=== PATIENT | female | born 1945 | race Caucasian/White ===

== ENCOUNTER 2021-09-18 09:09 | Emergency (ER) | payer MEDICARE, BC, OTHER ==
[~2021-09-18] VITALS: Ht 170.2 cm; Wt 70.0 kg
[2021-09-18] MEDS ORDERED: CEPHALEXIN500 MG PO (09:44)
[2021-09-18 10:16] VITALS: BP 138/735
== END 2021-09-18 10:16 | disposition home or self-care (01) ==
LOC: ED 09:09
PROC: 0HQGXZZ Repair Left Hand Skin, External Approach (ICD-10-PCS; principal; 2021-09-18)
DX: S61.211A Laceration without foreign body of left index finger without damage to nail, initial encounter (principal); W26.0XXA Contact with knife, initial encounter; Y93.89 Activity, other specified; Y92.000 Kitchen of unspecified non-institutional (private) residence as the place of occurrence of the external cause

== ENCOUNTER 2021-09-27 09:21 | Emergency (ER) | payer MEDICARE, OTHER, BC ==
[~2021-09-27] VITALS: Ht 170.2 cm; Wt 55.5 kg
[~2021-09-27 09:21] MED LIST: CEPHALEXIN500 MG PO
[2021-09-27 09:50] VITALS: BP 185/87
== END 2021-09-27 09:47 | disposition home or self-care (01) ==
LOC: ED 09:21
DX: S61.412D Laceration without foreign body of left hand, subsequent encounter (principal); X58.XXXD Exposure to other specified factors, subsequent encounter